=== PATIENT | male | born 2000 | race Caucasian/White ===

== ENCOUNTER → 2018-10-29 | Outpatient (CLI) | payer OTHER ==
[~2018-10-29] MED LIST: AMOX250C3; CYCL10TA PO; IBUP-1022 PO
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
== END ==
LOC: M WUC 15:28
PROVIDERS: ATTEND Physician Assistant
DX: S60.221A Contusion of right hand, initial encounter (principal); X58.XXXA Exposure to other specified factors, initial encounter; Y92.9 Unspecified place or not applicable

== ENCOUNTER → 2018-11-20 | Outpatient (CLI) | payer OTHER ==
[~2018-11-20] MED LIST changes: -CYCL10TA PO; -IBUP-1022 PO
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
== END ==
LOC: M WUC 17:09
PROVIDERS: ATTEND Nurse Practitioner Family
DX: M25.472 Effusion, left ankle (principal); M25.572 Pain in left ankle and joints of left foot

== ENCOUNTER 2019-03-15 20:55 | Emergency (ER) | payer OTHER ==
[~2019-03-15] VITALS: Ht 172.7 cm; Wt 57.3 kg
[2019-03-15] MEDS ORDERED: IBUPROFEN 600 MG TAB PO ONE (21:15)
[2019-03-15] MEDS ORDERED: ADACEL/BOOSTRIX VACCINE (DIPHTH/PERTUSS/ACELL/TETANUS)0.5ML SYR (90715) IM ONE (21:15)
[2019-03-15] MEDS ORDERED: IBUP-1022 PO (21:59)
[2019-03-15] MEDS ORDERED: CYCL10TA PO (21:59)
[2019-03-15 22:00] VITALS: BP 127/68
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
== END 2019-03-15 22:18 | disposition home or self-care (01) ==
LOC: M ED 20:55
DX: S61.210A Laceration without foreign body of right index finger without damage to nail, initial encounter (principal); S70.01XA Contusion of right hip, initial encounter; S70.211A Abrasion, right hip, initial encounter; V49.49XA Driver injured in collision with other motor vehicles in traffic accident, initial encounter; Y92.410 Unspecified street and highway as the place of occurrence of the external cause

== ENCOUNTER 2019-03-17 17:05 | Emergency (ER) | payer OTHER ==
[~2019-03-17] VITALS: Ht 172.7 cm; Wt 59.1 kg
[~2019-03-17 17:05] MED LIST changes: +CYCL10TA PO; +IBUP-1022 PO
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
[2019-03-17 19:09] VITALS: BP 120/77
== END 2019-03-17 20:00 | disposition home or self-care (01) ==
LOC: M ED 17:05
DX: S06.0X0A Concussion without loss of consciousness, initial encounter (principal); V43.52XA Car driver injured in collision with other type car in traffic accident, initial encounter; Y92.410 Unspecified street and highway as the place of occurrence of the external cause

== ENCOUNTER → 2022-11-23 | Outpatient (REF) | payer OTHER ==
[~2022-11-23] MED LIST changes: +CYCL-707 PO; -CYCL10TA PO
== END ==
LOC: M LAB REF 12:56
PROVIDERS: ATTEND Physician Assistant Medical
DX: R19.7 Diarrhea, unspecified (principal); R10.13 Epigastric pain

== ENCOUNTER → 2023-01-18 | Outpatient (CLI) | payer OTHER ==
[~2023-01-18] MED LIST changes: +GASTROGRAFIN SOLUTION 30ML As Ordered ONE; +ISOVUE-370 76% 100ML VIAL As Ordered ONE
== END ==
LOC: M RAD 14:52
PROVIDERS: ATTEND Physician Assistant Medical
DX: R10.13 Epigastric pain (principal); R19.7 Diarrhea, unspecified